=== PATIENT | male | born 1980 | race Caucasian/White ===

== ENCOUNTER 2017-10-31 00:43 | Emergency (ER) | payer OTHER ==
--- NOTE | 2017-10-31 01:56 | CPEKG ---
Heart Rate: 79 RR Interval: 759 P-R Interval: 160 QRSD Interval: 104 QT Interval: 368 QTC Interval: 422 P [place]: 30 QRS [place]: -1 T Wave [place]: 13 EKG Severity - ABNORMAL ECG - EKG Impression: SINUS RHYTHM Electronically Signed By: Rani Wen 31-Oct-2017 07:28:31
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
[2017-10-31 03:25] VITALS: BP 142/104; PULSE 78; RESP 18; TEMP 97.9; O2SAT 95
== END 2017-10-31 03:23 | disposition home or self-care (01) ==
DX: R42 Dizziness and giddiness (principal); F17.200 Nicotine dependence, unspecified, uncomplicated; V89.2XXD Person injured in unspecified motor-vehicle accident, traffic, subsequent encounter